=== PATIENT | male | born 1945 | race Caucasian/White ===

== ENCOUNTER 2020-04-08 10:38 | Emergency (ER) | payer OTHER, BC ==
[~2020-04-08] VITALS: Ht 180.3 cm; Wt 104.3 kg
[~2020-04-08 10:38] MED LIST: ASPIRIN EC81 M1 PO; DIOVAN160 MG PO; DOXYCYCLINE 10100 M1 PO; EURAX60 GM; EXFORGE PO; FLOMAX0.4 MG PO; NORCO 5-325 TA1 EACH PO; ONDANSETRON HCL4 M2 PO; PERCOCET PO; ROSADAN45 GM; SIMVASTATIN40 MG PO; SOOLANTRA30 GM TP; TOPAMAX50 MG PO
[2020-04-08] MEDS ORDERED: LOSARTAN POTASS50 MG PO (10:51)
[2020-04-08] MEDS ORDERED: INDERAL LA120 MG PO (10:51)
[2020-04-08] MEDS ORDERED: GABAPENTIN 100100 MG PO (10:53)
[2020-04-08 11:19] LABS: ABSOLUTE NEUTROPHILS 4.6 thou/uL (1.4-8.2); BASOPHILS 0.4 % (0.0-2.0); EOSINOPHILS 0.7 % (0.0-3.0); HEMATOCRIT 40.8 % (42.0-52.0); HEMOGLOBIN 13.2 gm/dL (14.0-18.0); LYMPHOCYTES 16.5 % (24.0-44.0); MCHC 32.2 g/dL (28.0-37.0); MCV 80.6 fL (80.0-100.0); MONOCYTES 7.5 % (1.0-8.0); PLATELET COUNT 219 thou/uL (150-400); POLYS 74.9 % (36.0-66.0); RBC 5.06 mil/uL (4.50-6.00); RDW 17.6 % (10.5-14.5); WBC 6.1 thou/uL (4.0-11.0)
[2020-04-08 11:21] LABS: ANION GAP 9 mmol/L (7-16); BUN 13 mg/dL (7-18); CALCIUM 8.6 mg/dL (8.5-10.1); CHLORIDE 105 mmol/L (98-107); CO2 27 mmol/L (21-32); CREATININE 1.2 mg/dL (0.7-1.3); GLUCOSE 118 mg/dL (74-106); POTASSIUM 4.2 mmol/L (3.5-5.1); SODIUM 141 mmol/L (136-145)
[2020-04-08 11:32] LABS: ALBUMIN 3.3 g/dL (3.4-5.0); DIRECT BILIRUBIN < 0.1 mg/dL (<0.1-0.2); LIPASE 136 U/L (73-393); SGOT 38 U/L (15-37); SGPT 35 U/L (30-65); TOTAL BILIRUBIN 0.4 mg/dL (0.2-1.0); TOTAL PROTEIN 7.2 g/dL (6.4-8.2); TROPONIN-I <0.06 ng/mL (<0.06)
[2020-04-08] MEDS ORDERED: TESSALON PERLE100 MG PO (13:52)
[2020-04-08 14:19] VITALS: BP 104/55
--- NOTE | 2020-04-09 11:17 | EKG ---
[facility] [place] [address] ELECTROCARDIOGRAM REPORT Name: CAYDEN GOODMAN Room [id number] Admission: 04/08/20 Attend Phys: Discharge: 04/08/20 Date of : 49 Report #: [id number] THIS REPORT FOR: cc: Fitz Rangel MD, Michael D. MD Santiago, Patrick MD [facility] ~ THIS REPORT FOR: //name// [facility] ED Test Date: 2020-04-08 Test Time: 11:05:36 Pat Name: CAYDEN GOODMAN Department: Room: Gender: [employer]: FELICIANO : 1945 Requested By: Kamran Ballard Order Number: [id number] MD: Mariusz Kirkpatrick Measurements Intervals [place] Rate: 79 P: 4 MD: 145 QRS: 65 QRSD: 89 T: 40 QT: 379 QTc: 435 Interpretive Statements Sinus rhythm Compared to ECG 07/25/2013 12:48:14 Sinus tachycardia no longer present Atrial premature complex(es) no longer present Electronically Signed On 04-09-2020 11:17:16 CDT by Mariusz Kirkpatrick [email or web address] <ELECTRONICALLY SIGNED> By: Mariusz Kirkpatrick MD, FACC 04/09/20 1117 [id number] [id number] Mariusz Kirkpatrick MD, [facility] /EPI
== END 2020-04-08 14:26 | disposition home or self-care (01) ==
LOC: ER 10:38
PROVIDERS: Nurse Practitioner
DX: U07.1 COVID-19 (principal); E78.00 Pure hypercholesterolemia, unspecified; Z87.442 Personal history of urinary calculi; Z79.82 Long term (current) use of aspirin; Z79.899 Other long term (current) drug therapy; Z88.2 Allergy status to sulfonamides; Z87.891 Personal history of nicotine dependence